=== PATIENT | male | born 1950 | race Caucasian/White ===

== ENCOUNTER → 2017-11-03 | Outpatient (CLI) | payer OTHER | LOC: FIMAGING 08:25 | PROVIDERS: ATTEND Orthopaedic Surgery | DX: M16.12 Unilateral primary osteoarthritis, left hip (principal); M47.896 Other spondylosis, lumbar region; M48.061 Spinal stenosis, lumbar region without neurogenic claudication ==

== ENCOUNTER 2017-12-28 05:26 | Inpatient (IN) | payer OTHER ==
[2017-12-28] MEDS ORDERED: VANCOMYCIN PHARMACY TO DOSE MISC ONE (05:54)
[2017-12-28] MEDS ORDERED: FAMOTIDINE 20 MG TAB PO ONE (05:54)
[2017-12-28] MEDS ORDERED: ACETAMINOPHEN 325 MG TAB PO ONE (05:54)
[2017-12-28] MEDS ORDERED: TRANEXAMIC ACID 1,000 MG in NS (SYRINGE) 50 ML IV ONE (05:54)
[2017-12-28] MEDS ORDERED: POVIDONE-IODINE 20 ML in SODIUM CL IRRIG SOLUTION 500 ML IRR ONE (05:54)
[2017-12-28] MEDS ORDERED: DEXAMETHASONE 4 MG/ML VIAL IVP ONE (05:54)
[2017-12-28] MEDS ORDERED: LIDOCAINE 1% 2 ML INJ ID PRN (05:55)
[2017-12-28] MEDS ORDERED: EPINEPHRINE IU ONE (06:00)
[2017-12-28] MEDS ORDERED: KETOROLAC TROMETHAMINE IU ONE (06:00)
[2017-12-28] MEDS ORDERED: BUPIVACAINE 0.5% IU ONE (06:00)
[2017-12-28] MEDS ORDERED: [UNRECOGNIZED DRUG - OTHER] IU ONE (06:00)
[2017-12-28] MEDS ORDERED: VANCOMYCIN 1.25 GM in NS 250 ML IV ONE ×2 (06:30→18:30)
[2017-12-28] MEDS ORDERED: BUPIVACAINE/EPI 0.5% 30 ML SDV ONE (06:45)
[2017-12-28] MEDS ORDERED: BACITRACIN 50,000 UNITS/10 ML SYR IRR ONE (06:46)
[2017-12-28] MEDS ORDERED: POLYMYXIN B SULFATE 500,000 UNIT/10 ML SYR IRR ONE (06:47)
--- NOTE | 2017-12-28 07:01 | PDHPUP ---
History & Physical Update H&P update statement: This history and physical update is based on an assessment of the patient which was completed after admission or registration (within 24 hours), but prior to the surgery/procedure. H&P update: H&P reviewed & patient examined, no change in patient's condition since H&P completed
[2017-12-28] MEDS ORDERED: HYDROmorphONE/DILAUDID 1 MG/ML INJ IVP PRN (07:09)
[2017-12-28] MEDS ORDERED: MIDAZOLAM 2 MG/2 ML VIAL IVP ONE (07:09)
[2017-12-28] MEDS ORDERED: OXYCODONE/APAP 5/325 TAB PO PRN (07:09)
[2017-12-28] MEDS ORDERED: DEXAMETHASONE 4 MG/ML VIAL IVP PRN (07:09)
[2017-12-28] MEDS ORDERED: HYDROCODONE/APAP 5/325 TAB PO PRN (07:09)
[2017-12-28] MEDS ORDERED: ACETAMINOPHEN 500 MG TAB PO PRN (07:09)
[2017-12-28] MEDS ORDERED: ALBUTEROL 3 ML DEYVIAL IH PRN (07:09)
[2017-12-28] MEDS ORDERED: fentaNYL 100 MCG/2 ML INJ IVP PRN (07:09)
[2017-12-28] MEDS ORDERED: NALOXONE HCL 0.4 MG/ML INJ IVP PRN (07:09)
[2017-12-28] MEDS ORDERED: ONDANSETRON 4 MG/2 ML VIAL IVP PRN ×2 (07:09→10:32)
[2017-12-28] MEDS ORDERED: fentaNYL 100 MCG/2 ML INJ ONE ×2 (07:13→11:19)
[2017-12-28] MEDS ORDERED: PROPOFOL/EMULSION 500 MG/50 ML BOTTLE IV ONE ×3 (07:13→09:06)
[2017-12-28] MEDS ORDERED: DEXAMETHASONE 4 MG/ML VIAL ONE (07:50)
[2017-12-28] MEDS ORDERED: ONDANSETRON 4 MG/2 ML VIAL ONE (07:50)
--- NOTE | 2017-12-28 10:26 | POSTANESTH ---
Post Anesthetic Evaluation Cardiovascular Status: Normal, Stable Respiratory Status: Normal, Stable Level of Consciousness/Mental Status: Mildly Sleepy, Arousable Pain Control: Adequate, Prn Tx Ordered Nausea/Vomiting Control: Adequate, Prn Tx Ordered Complications Possibly Related to Anesthesia: None Noted
--- NOTE | 2017-12-28 10:27 | PDANEPAE ---
ANE History of Present Illness Left Hip ANE Past Medical History - Cardiovascular History Hx Hypertension: Yes Hx Arrhythmias: No Hx Chest Pain: No Hx Coronary Artery / Peripheral Vascular Disease: No Hx CHF / Valvular Disease: Yes Hx Palpitations: No Cardiovascular History Comment: htn. aortic valve stenosis. thoracic aneurysm. hyperlipidemia. nonrheumatic aortic valve insufficiency - Pulmonary History Hx COPD: No Hx Asthma/Reactive Airway Disease: No Hx Recent Upper Respiratory Infection: No Hx Oxygen in Use at Home: No Hx Sleep Apnea: Yes Pulmonary History Comment: yeimy triggers - Neurologic History Hx Cerebrovascular Accident: No Hx Seizures: No Hx Dementia: No - Endocrine History Hx Diabetes: No - Renal History Hx Renal Disorders: Yes Renal History Comment: frequency - Liver History Hx Hepatic Disorders: No - Neurological & Psychiatric Hx Hx Neurological and Psychiatric Disorders: No - Cancer History Hx Cancer: No - Congenital Disorder History Hx Congenital Disorders: No - GI History Hx Gastrointestinal Disorders: No - Other Health History Other Health History: wears glasses - Chronic Pain History Chronic Pain: Yes (left hip, left knee) - Surgical History Prior Surgeries: knee scope- left ANE Review of Systems Review of Systems: ANE Patient History - Allergies Allergies/Adverse Reactions: Penicillins Allergy (Verified 10/27/17 15:50) was told he swelled up when he was little - Home Medications Home Medications: Aspirin [Aspirin 81mg (*)] 07/01/15 [Last Taken 11/28/17] Fenofibrate Nanocrystallized [Fenofibrate] 145 mg PO DAILY 07/01/15 [Last Taken 12/27/17] C/E/Zn/Cu/OM3/DHA/EPA/LUT/ZEAX [Preservision Areds 2 Softgel] 10/27/17 [Last Taken 11/28/17] Carvedilol [Coreg (*)] 12.5 mg PO BID 10/27/17 [Last Taken 12/27/17] Cholecalciferol Vit D3 [Vitamin D3 (*)] 10/27/17 [Last Taken 11/28/17] Glucosamine Sulfate [Glucosamine Sulfate 500 MG (*)] 10/27/17 [Last Taken 12/14] Herbals/Supplements -Info Only 10/27/17 [Last Taken 11/28/17] Multivitamins [Multivitamin (*)] 10/27/17 [Last Taken 11/28/17] Rosuvastatin Calcium [Crestor 20mg (*)] 20 mg PO HS 10/27/17 [Last Taken ] Amiodarone HCl 200 mg PO DAILY 12/27/17 [Last Taken 12/27/17] Eliquis 5 mg PO BID 12/28/17 [Last Taken 12/24/17] - NPO status NPO Since - Liquids (Date): 12/28/17 NPO Since - Liquids (Time): 00:00 NPO Since - Solids (Date): 12/27/17 NPO Since - Solids (Time): 20:00 - Smoking Hx Smoking Status: Never smoked - Family Anes Hx Family Hx Anesthesia Complications: none ANE Labs/Vital Signs - Vital Signs Blood Pressure: 111/72 Heart Rate: 74 Respiratory Rate: 18 O2 Sat (%): 94 Height: 182.88 cm Weight: 92.986 kg ANE Physical Exam - Airway Neck exam: FROM Mallampati Score: Class 2 - Pulmonary Pulmonary: clear to auscultation - Cardiovascular Cardiovascular: regular rate and rhythym - ASA Status ASA Status: II ANE Anesthesia Plan Anesthesia Plan: spinal Total IV Anesthesia: Yes
[2017-12-28] MEDS ORDERED: LACTULOSE 20 GM/30 ML UDCUP PO PRN (10:32)
[2017-12-28] MEDS ORDERED: METOCLOPRAMIDE 10 MG/2 ML VIAL IVP PRN (10:32)
[2017-12-28] MEDS ORDERED: POLYETHYLENE GLYCOL 3350 17 GM PKT PO PRN (10:32)
[2017-12-28] MEDS ORDERED: PROMETHAZINE HCL 25 MG SUPPR PR PRN (10:32)
[2017-12-28] MEDS ORDERED: CYCLOBENZAPRINE 10 MG TAB PO PRN (10:32)
[2017-12-28] MEDS ORDERED: MAGNESIUM HYDROXIDE 30 ML UDCUP PO PRN (10:32)
[2017-12-28] MEDS ORDERED: DIPHENOXYLATE/ATROPINE LOMOTIL 1 TAB PO PRN (10:32)
[2017-12-28] MEDS ORDERED: BISACODYL 10 MG SUPP PR PRN (10:32)
[2017-12-28] MEDS ORDERED: TEMAZEPAM 15 MG CAP PO PRN (10:32)
[2017-12-28] MEDS ORDERED: ONDANSETRON DISINTEGRATING 4 MG TAB PO PRN (10:32)
[2017-12-28] MEDS ORDERED: PROMETHAZINE HCL 25 MG/ML INJ IVP PRN (10:32)
[2017-12-28] MEDS ORDERED: diphenhydrAMINE 25 MG CAP PO PRN (10:32)
--- NOTE | 2017-12-28 10:40 | POSTOPPROG ---
Post Op Note Date of Operation: 12/28/17 Surgeon: William Thomas Camp Assistant: London Ruiztraradha Anesthesia: IV Sedation, Spinal Pre-op Diagnosis: Left hip OA Post-op Diagnosis: same Procedure: Left anterior GARDENIA with NGOC Inf/Abcess present in the surg proc area at time of surgery?: No EBL: 100-500 Drains: Hemovac
[2017-12-28] MEDS ORDERED: LR 1,000 ML IV SCH (11:00)
--- NOTE | 2017-12-28 11:27 | PDMN ---
Medical Necessity Medical necessity: Patient meets inpatient criteria per physician note/op note and [facility] S-560 Hip Arthroplasty (CPT 13849 / Medicare inpatient-only surgery.)
[2017-12-28] MEDS: ACETAMINOPHEN 325 MG TAB PO SCH ×2 (12:18→17:39)
[2017-12-28] MEDS: oxyCODONE IR 5 MG TAB PO PRN ×2 (13:38→21:09)
[2017-12-28] MEDS ORDERED: ROSUVASTATIN CALCIUM 20 MG TAB PO SCH (21:00)
[2017-12-28 21:02] VITALS: RESP 16
[2017-12-28] MEDS: ASPIRIN 325 MG TAB PO SCH (21:08)
[2017-12-28] MEDS: SENNOSIDES/DOCUSATE SODIUM TAB PO SCH (21:10)
[2017-12-28] MEDS: FAMOTIDINE 20 MG TAB PO SCH (21:10)
[2017-12-28] MEDS: CARVEDILOL 6.25 MG TAB PO SCH (21:26)
[2017-12-29] MEDS: ACETAMINOPHEN 325 MG TAB PO SCH ×2 (00:45→06:19)
--- NOTE | 2017-12-29 00:58 | GOP ---
[f rep st] OPERATIVE REPORT DATE OF OPERATION: 12/28/2017 SURGEON: William Thomas MD SENIOR [employer] DEVELOPER: London Berkowitz, CSFA, LSA. Rn Nursery was required for the procedure due to the complexity of the case and the patient's conditio n for positioning, prepping, draping, retraction, and closure. ANESTHESIA: General and IV sedation. PREOPERATIVE DIAGNOSIS: Left hip osteoarthritis. POSTOPERATIVE DIAGNOSIS: Left hip osteoarthritis. PROCEDURE PERFORMED: Left hip anterior approach total hip replacement with MAKOplasty robotic andre simpson. Fluoroscopic supervision greater than 1 hour. FINDINGS: SPECIMENS: None. ESTIMATED BLOOD LOSS: 300 cc. INDICATIONS: Patient has severe hip osteoarthritis that failed to improve with conservative measures significantly affecting activities of daily living, including walking. Patient elected to proceed w ith anterior approach hip replacement using MAKOplasty robotic guidance after extensive discussion of all possible approaches as well as the risks, benefits, pros, cons, and expected recovery and progno sis. The patient verbalized an understanding of the risks and benefits of the procedure and signed t he informed consent prior to the procedure. DESCRIPTION OF PROCEDURE: Patient was seen in the holding area and the operative consent and extremi ty was signed. Patient taken to the operating room. After induction of spinal anesthesia and IV sed ation, the patient was placed in the supine position on the Steris fracture table. Hip and contralat eral iliac crest were prepped and draped in the usual sterile fashion. Operative site was confirmed by signature, operative time-out performed, allergies reviewed antibiotics, antibiotics and TXA admin istered. Three pins were placed in the contralateral iliac crest and pelvic array was fixed. It was well visu alized by the robot. Desired incision for the anterior approach to the hip was infiltrated with 25% Marcaine with epinephrine. The incision was made with a 10 blade and carried down through subcutaneo us tissue to identify the TFL fascia. This was incised in line with the incision and the TFL was ret racted laterally. Lateral femoral circumflex vessels were coagulated with Aquamantys and the deep TF L fascia was incised and the vastus lateralis was clearly exposed. The pericapsular fat was excised. T-shaped capsulotomy was performed and the capsule was preserved for later closure. A femoral array was fixed into the anterior greater trochanter, as was the checkpoint for the femur. Femoral registration was performed using the robot. Femoral neck was cut and then performed under r obotic guidance. The femoral head was excised with corkscrew. The acetabulum was exposed in standard fashion and the labrum and pulvinar soft tissue were excised s harmarquez. Pelvic checkpoint was placed in the AIIS. Acetabular registration was performed using the r obot. Reaming was then performed using the robot to the desired size. The cup was impacted into ailyn ce, again with robotic guidance system. Good fixation was achieved. The cup was irrigated and dried and the liner was impacted into place achieving good locking within the cup. The femur was then exp osed in the standard fashion. The femur was broached to the desired size. The trial neck and head w ere attached and the hip was relocated. Length and offset were confirmed using the robot. The posit ion of all components was also confirmed at this point fluoroscopically. The hip was dislocated and the femoral trial components were removed and the stem was impacted into place. The trunnion was vane aned and dried and the head was impacted down into the trunnion. The wound was copiously irrigated, including the cup with pulse lavage and the hip was once again relocated and the final numbers for le ngth and offset were taken using the robot. Component placement was confirmed with fluoroscopy. All checkpoints in the femoral array screw were removed. Pelvic array was also removed. The wound w as copiously irrigated with sterile solution. Capsule was repaired with #1 Vicryl. Indirect head of the rectus femoris was also repaired with #1 Vicryl. Drain was placed exiting distally and laterall y from deep to TFL. The wound was then closed in layers with 0 Quill in the TFL fascia and deep subc utaneous fat, 3-0 Versalok in the dermis. The wound was dressed with sterile dressings. The patient was safely awakened and taken to the recovery room in stable condition. All critical portions of the procedure performed by myself, Dr. Thomas. This operative note was create d by myself and I was immediately available for emergency cross-coverage at all times. DRAINS: Hemovac x1. COMPLICATIONS: None. IMPLANTS: Include Octavia titanium hemispherical solid back shell size 56, 36 mm 0-degree polyethyle ne insert, Accolade II 127-degree neck angle, size 5 with a 36 mm +2.5 ceramic femoral head. /[id number]/MODL
--- NOTE | 2017-12-29 07:21 | SOAPPROG ---
SOAP Progress Note Assessment/Plan: Assessment: 67-year-old male postop day 1 status post left anterior approach total hip arthroplasty with Diego robotic guidance Plan: Weight-bearing as tolerated with assistance, PT OT Pain control as needed Aspirin today and SCDs for DVT prophylaxis followed by resuming Eliquis Incentive spirometry 10 times per hour Disposition: Home today after PT 12/29/17 07:17 Subjective: No acute events overnight. Pain well controlled. Denies fevers chills nausea vomiting chest pain shortness of breath numbness or tingling. Walked around the floor 3 times yesterday Objective: Vital Signs Temp Pulse Resp BP Pulse Ox 36.4 C 83 16 103/60 93 12/29/17 04:00 12/29/17 04:00 12/29/17 04:00 12/29/17 04:00 12/29/17 04:00 Laboratory Results 12/29/17 04:50 12/28/17 12/29/17 12/30/17 05:59 05:59 05:59 Intake Total 1600 Output Total 1925 Balance -325 Awake alert and oriented x3 no acute distress Easy nonlabored breathing Left lower extremity: Dressing clean dry intact no erythema drainage or signs of infection Drain discontinued Thigh and calf compartments soft compressible nontender Motor intact to EHL FHL tibialis anterior gastrocsoleus Palpable DP PT pulses - Time Spent With Patient Time Spent With Patient: 20 - Pending Discharge Pending Discharge Within 24 Hours: Yes Pending Discharge Date: 12/29/17 Pending Discharge Time: 11:00 ICD10 Worksheet Patient Problems: Problems Problem Status Onset Osteoarthritis of left hip Acute
[2017-12-29] MEDS: CARVEDILOL 6.25 MG TAB PO SCH (08:13)
[2017-12-29] MEDS: FAMOTIDINE 20 MG TAB PO SCH (08:13)
[2017-12-29] MEDS: ASPIRIN 325 MG TAB PO SCH (08:13)
[2017-12-29] MEDS: SENNOSIDES/DOCUSATE SODIUM TAB PO SCH (08:13)
[2017-12-29 08:19] VITALS: BP 113/66; PULSE 78
[2017-12-29 08:33] VITALS: TEMP 99.1; O2SAT 92
[2017-12-29] MEDS ORDERED: AMIODARONE HCL 200 MG TAB PO SCH (09:00)
[2017-12-29] MEDS ORDERED: CHOLECALCIFEROL VIT D3 1,000 UNITS TAB PO SCH (09:00)
[2017-12-29] MEDS ORDERED: AMIODARONE HCL 200 MG PO SCH (09:00)
--- NOTE | 2017-12-29 14:33 | ASMTCMCOM ---
CM Note CM Note Notes: Pt medically stable for d/c. PT rec home/outpatient. No CM d/c needs identified. Date Signed: 12/29/2017 02:33 PM Electronically Signed By:HENRY Belle
--- NOTE | 2018-01-01 13:31 | GDS ---
[f rep st] DISCHARGE SUMMARY ADMITTING DIAGNOSIS: Left hip end-stage osteoarthritis. DISCHARGE DIAGNOSIS: Left hip end-stage osteoarthritis. PROCEDURE PERFORMED: Left anterior approach total hip arthroplasty with Diego robotic guidance. HOSPITAL COURSE: The patient was admitted on the above date, underwent the above procedure, and tole rated it well. He was given perioperative and postoperative antibiotics. Given aspirin and SCDs for DVT prophylaxis, as well as adequate pain control. He cleared and passed physical therapy on postop erative day #1 and was cleared for discharge home. DISCHARGE DISPOSITION: Home. CONDITION UPON DISCHARGE: Stable. /[id number]/MODL
== END 2017-12-29 10:20 | disposition home or self-care (01) | DRG 470 ==
LOC: FSGY 05:26 → EDSTATUS 07:15 → F3N 10:32
PROVIDERS: ADMIT Orthopaedic Surgery; ATTEND Orthopaedic Surgery
PROC: BQ111ZZ Fluoroscopy of Left Hip using Low Osmolar Contrast (ICD-10-PCS; 2017-12-28)
PROC: 0SRB04Z Replacement of Left Hip Joint with Ceramic on Polyethylene Synthetic Substitute, Open Approach (ICD-10-PCS; principal; 2017-12-28 07:15)
PROC: 8E0YXBZ Computer Assisted Procedure of Lower Extremity (ICD-10-PCS; principal; 2017-12-28 07:15)
DX: M16.12 Unilateral primary osteoarthritis, left hip (principal); I10 Essential (primary) hypertension; E78.5 Hyperlipidemia, unspecified; I35.1 Nonrheumatic aortic (valve) insufficiency; Z82.49 Family history of ischemic heart disease and other diseases of the circulatory system; Z88.0 Allergy status to penicillin
CPT/HCPCS: 97110-GP; 97116-GP; 97161-GP; 97165-GO; J0171; J1100; J1885; J2250; J2405; J2704; J3010; J3370

== ENCOUNTER 2018-05-11 10:28 | Day surgery (SDC) | payer OTHER ==
[2018-05-11] MEDS ORDERED: NS 500 ML IV ONE (11:22)
[2018-05-11] MEDS ORDERED: fentaNYL 100 MCG/2 ML INJ ONE (11:48)
[2018-05-11] MEDS ORDERED: MIDAZOLAM 2 MG/2 ML VIAL ONE (11:48)
--- NOTE | 2018-05-11 12:41 | PDPROPOC ---
Sedation Plan of Care Sedation Plan of Care: vital signs stable, mental status noted, patient educated of risks, benefits, alternatives, patient can tolerate sedation ASA Classification: ASA 2 Planned drugs: fentanyl, midazolam Mallampati Score: Class 2 Mallampati Reference Image: Patient passed 3-3-2 rule?: Yes
--- NOTE | 2018-05-11 12:41 | PDGENHP ---
History & Physical Chief Complaint: phx poloyps History of Present Illness: polyps Pertinent Past, Social, Family History: htn, chol,. tobacoo no. alcohol rare. fhx -- no cc or polyps Relevant Physical Exam: A+Ox3. CTA. +BS, soft nt Cardiorespiratory Assessment: class 2
--- NOTE | 2018-05-11 13:37 | GIREPORT ---
[facility] - Endoscopy Department Patient Name: Ian Rendon Procedure Date: 05/11/2018 11:23 AM Patient Type: Outpatient Attending MD/ ER Physician: Gee Lambert Procedure: Colonoscopy Indications: High risk colon cancer surveillance: Personal history of adenoma with villous component Providers: Axel Castro MD Medicines: Fentanyl 100 micrograms IV, Midazolam 4 mg IV Complications: No immediate complications. Estimated blood loss: Minimal. Description of Procedure: After obtaining informed consent, the scope was passed under direct vis ion. Throughout the procedure, the patient's blood pressure, pulse, and oxyg en saturations were monitored continuously. The Colonoscope with irrigatio n channel was introduced through the anus and advanced to the terminal il eum, with identification of the appendiceal orifice and IC valve. The colono scopy was performed without difficulty. The patient tolerated the procedure w ell. The quality of the bowel preparation was good. Findings: The digital rectal exam was normal. The terminal ileum appeared normal. A localized area of moderately congested, erythematous, eroded, inflame d and ulcerated mucosa was found at the ileocecal valve. Biopsies were taken with a cold forceps for histology. Estimated blood loss was minimal. A post polypectomy scar was found in the proximal transverse colon. The scar tissue was healthy in appearance. There was residual polypoid tissue. Biopsies were taken with a cold forceps for histology. Estimated blood loss was minimal. Fulguration to ablate the lesion remnants by argon plasma was successful. Estimated blood loss: none. A 3 mm polyp was found in the transverse colon. The polyp was semi-sess ile. The polyp was removed with a piecemeal technique using a cold biopsy forceps. Resection and retrieval were complete. Estimated blood loss wa s minimal. Medium-mouthed diverticula were found in the sigmoid colon and descendi ng colon. The exam was otherwise without abnormality. Estimated Blood Loss: Estimated blood loss was minimal. Post Op Diagnosis: - The examined portion of the ileum was normal. - Congested, erythematous, eroded, inflamed and ulcerated mucosa at the ileocecal valve. Biopsied. Query from NSAID's? - Post-polypectomy scar in the proximal transverse colon. Biopsied. Ronaldo ated with argon plasma coagulation (APC). - One 3 mm polyp in the transverse colon, removed piecemeal using a col d biopsy forceps. Resected and retrieved. - Diverticulosis in the sigmoid colon and in the descending colon. - The examination was otherwise normal. Recommendation: - Await pathology results. - My office will call with the pathology result with 5-7 days. If you h ave not heard from my office by 12-14, do not assume the pathology is luciano l, please call [phone] to get the pathology results. - Repeat colonoscopy in 3 years for surveillance based on pathology res ults. If the proximal transverse colon scar and IC valve have no precancerous tissue then 3 years is correct. - High fiber diet indefinitely. - 30-35 grams of dietary fiber per day. Can use supplemental fiber. - A high fiber diet may decrease risk of complications from diverticulo sis. There is no need to avoid seeds or nuts. - Patient has a contact number available for emergencies. The signs and symptoms of potential delayed complications were discussed with the eden steen. Return to normal activities tomorrow. Written discharge instructions we re provided to the patient. - Continue present medications. - Avoid Aspirin and NSAID's for 7-10 days except as used for cardiac or stroke prevention. - Discharge patient to home (ambulatory). - Return to primary care physician as previously scheduled. - Thank you for allowing me to help in your patient's care. Do not hesi young to call with any questions. Attending Participation: I personally performed the entire procedure. Matthew Reyna M.D Axel Castro MD 05/11/2018 1:37:16 PM This report has been signed electronicallyMathew MD Matthew Number of Addenda: 0 Note Initiated On: 05/11/2018 11:23 AM Total Procedure Duration Time 0 hours 26 minutes 29 seconds [email or web address]
[2018-05-11 14:18] VITALS: BP 112/81
== END 2018-05-11 14:14 | disposition home or self-care (01) ==
LOC: FSGY 10:28
PROVIDERS: ATTEND Internal Medicine Gastroenterology
PROC: 0DBC8ZX Excision of Ileocecal Valve, Via Natural or Artificial Opening Endoscopic, Diagnostic (ICD-10-PCS; principal; 2018-05-11 12:00)
PROC: 0DBL8ZX Excision of Transverse Colon, Via Natural or Artificial Opening Endoscopic, Diagnostic (ICD-10-PCS; principal; 2018-05-11 12:00)
DX: D12.3 Benign neoplasm of transverse colon (principal); K57.30 Diverticulosis of large intestine without perforation or abscess without bleeding
CPT/HCPCS: J2250; J3010